=== PATIENT | female | born 1950 | race African-American/Black ===

== ENCOUNTER 2018-10-22 11:00 | Emergency (ER) | payer MEDICARE, OTHER ==
[~2018-10-22] VITALS: Ht 162.6 cm; Wt 70.3 kg
[~2018-10-22 11:00] MED LIST: ASPI-630 PO; ATEN-56 PO; LISI-334 PO; OMEGA PO; SPIR25TA PO; multivitamin PO
[2018-10-22 11:18] VITALS: BP 153/130
--- NOTE | 2018-10-22 11:46 | PHYS DOC ---
Past History Past Medical History: High Cholesterol, Hypertension Past Surgical History: Hysterectomy, Other Smoking: Quit Greater Than 1 Year Alcohol Use: Occasionally Drug Use: None Adult General Chief Complaint Chief Complaint: NOSEBLEED HPI HPI 68-year-old female presents with nosebleed. The patient was taking a shower when she started having a nosebleed on the right. She has not had a significant nosebleed in about 4 years. She was trying to stay calm balls in her nose and get dressed on same time which was very difficult. Patient was unable to get the bleeding to stop at home, so she got a ride to the emergency room. The patient is on a baby aspirin daily. She is on no other antiplatelets or anticoagulants. 4 years ago, the patient had to have her nose cauterized. The patient has chronic sinus drainage. She also has hypertension. She did not take her blood pressure medicine this morning. On arrival to the ED, the patient's bleeding seemed to be more control. Review of Systems Review of Systems Constitutional: Denies fever or chills [] Eyes: Denies change in visual acuity, redness, or eye pain [] HENT: Nosebleed. Denies nasal congestion or sore throat [] Respiratory: Denies cough or shortness of breath [] Cardiovascular: No additional information not addressed in HPI [] GI: Denies abdominal pain, nausea, vomiting, bloody stools or diarrhea [] : Denies dysuria or hematuria [] Musculoskeletal: Denies back pain or joint pain [] Integument: Denies rash or skin lesions [] Neurologic: Denies headache, focal weakness or sensory changes [] Endocrine: Denies polyuria or polydipsia [] All other systems were reviewed and found to be within normal limits, except as documented in this note. Allergies Allergies Allergies Coded Allergies Type Severity Reaction Last Updated Verified Sulfa (Sulfonamide Antibiotics) Allergy Unknown 09/10/13 Yes Physical Exam Physical Exam Constitutional: Well developed, well nourished, no acute distress, non-toxic appearance. [] HENT: Normocephalic, atraumatic, bilateral external ears normal, oropharynx moist, no oral exudates, nose with clot in the right nares. No active bleeding.[] Eyes: PERRLA, EOMI, conjunctiva normal, no discharge. [] Neck: Normal range of motion, no tenderness, supple, no stridor. [] Cardiovascular:Heart rate regular rhythm, no murmur [] Lungs & Thorax: Bilateral breath sounds clear to auscultation [] Abdomen: Bowel sounds normal, soft, no tenderness, no masses, no pulsatile masses. [] Skin: Warm, dry, no erythema, no rash. [] Back: No tenderness, no CVA tenderness. [] Extremities: No tenderness, no cyanosis, no clubbing, ROM intact, no edema. [] Neurologic: Alert and oriented X 3, normal motor function, normal sensory function, no focal deficits noted. [] Psychologic: Affect normal, judgement normal, mood normal. [] Current Patient Data Vital Signs Vital Signs Date Time Temp Pulse Resp B/P (MAP) Pulse Ox O2 Delivery O2 Flow Rate FiO2 10/22/18 11:18 113 20 100 Room Air EKG EKG [] Radiology/Procedures Radiology/Procedures [] Course & Med Decision Making Course & Med Decision Making Pertinent Labs and Imaging studies reviewed. (See chart for details) After the patient was in the room, we had her blow her nose to clear the clots. There was minimal bleeding at that time. We placed a nasal clamp on her nose. This was left in place for 10 minutes. The patient's bleeding is now controlled. An exam of her nose shows that she had some bleeding from the anterior septum on both sides. The areas are well clotted at this time. She is stable for discharge. [] Dragon Disclaimer Dragon Disclaimer This electronic medical record was generated, in whole or in part, using a voice recognition dictation system. Departure Departure: Impression: Primary Impression: Nosebleed Disposition: 01 HOME, SELF-CARE Condition: IMPROVED Referrals: SAMEER HANDY DO (PCP) Patient Instructions: Demetra, [id number] PATRIA OSUNA DO Oct 22, 2018 11:46
== END 2018-10-22 12:54 | disposition home or self-care (01) ==
LOC: ER 11:00
DX: R04.0 Epistaxis (principal); E78.00 Pure hypercholesterolemia, unspecified; I10 Essential (primary) hypertension; Z87.891 Personal history of nicotine dependence; Z88.2 Allergy status to sulfonamides
CPT/HCPCS: 99281

== ENCOUNTER 2018-10-24 22:36 | Emergency (ER) | payer MEDICARE, OTHER ==
[~2018-10-24] VITALS: Ht 162.6 cm; Wt 70.3 kg
[2018-10-24] MEDS ORDERED: OXYMETAZOLINE 0.05% NASAL SPRAY 15ML BOTTLE. NS ONE (22:45)
[2018-10-24] MEDS ORDERED: OXYM15MI4 NS (23:15)
--- NOTE | 2018-10-24 23:15 | PHYS DOC ---
Past History Past Medical History: High Cholesterol, Hypertension, Other Past Surgical History: Hysterectomy, Other Additional Past Surgical Histo: shoulder surgery month back surgery Smoking: Quit Greater Than 1 Year Alcohol Use: Occasionally Drug Use: None Adult General Chief Complaint Chief Complaint: NOSEBLEED HPI HPI Patient is a 68-year-old female presents complaining of a right-sided nosebleed. This started approximately 30 minutes prior to arrival. Patient had another nosebleed that she was seen for on Tuesday. She was not given any medicine to help with the bleed. The bleeding had resolved on Tuesday prior to arrival. Patient was worried tonight and so came back to the emergency department. Bleeding was mild to moderate. There is no lightheadedness. No trauma. She relates that she had a sewer and inspector issue at her house, which backed up. This caused the need for significant home construction starting 3 days ago. She is wondering if possibly the dirt and dust in the air may be partially responsible for these nosebleeds[] Review of Systems Review of Systems Constitutional: Denies fever or chills [] Eyes: Denies change in visual acuity, redness, or eye pain [] HENT: Denies nasal congestion or sore throat, see history of present illness [] Respiratory: Denies cough or shortness of breath [] Cardiovascular: No chest pain or palpitations[] GI: Denies abdominal pain, nausea, vomiting, bloody stools or diarrhea [] : Denies dysuria or hematuria [] Musculoskeletal: Denies back pain or joint pain [] Integument: Denies rash or skin lesions [] Neurologic: Denies headache, focal weakness or sensory changes [] Endocrine: Denies polyuria or polydipsia [] All other systems were reviewed and found to be within normal limits, except as documented in this note. Current Medications Current Medications Current Medications Medications (Trade) Dose Ordered Sig/John Start Time Stop Time Status Last Admin Dose Admin Oxymetazoline HCl (Afrin) 2 spray 1X ONCE 10/24/18 22:45 10/24/18 22:47 DC 10/24/18 22:48 2 SPRAY Allergies Allergies Allergies Coded Allergies Type Severity Reaction Last Updated Verified Sulfa (Sulfonamide Antibiotics) Allergy Unknown 09/10/13 Yes Physical Exam Physical Exam Constitutional: Well developed, well nourished, no acute distress, non-toxic appearance. [] HENT: Normocephalic, atraumatic, bilateral external ears normal, oropharynx moist, no oral exudates, nose prominent vessels bilateral inferior turbinates. Blood is present in bilateral nares. No active bleeding is noted after Afrin administration.. [] Eyes: PERRLA, EOMI, conjunctiva normal, no discharge. [] Neck: Normal range of motion, no tenderness, supple, no stridor. [] Cardiovascular:Heart rate regular rhythm, no murmur [] Lungs & Thorax: Bilateral breath sounds clear to auscultation [] Abdomen: Not examined. [] Skin: Warm, dry, no erythema, no rash. [] Back: No tenderness, no CVA tenderness. [] Extremities: No tenderness, no cyanosis, no clubbing, ROM intact, no edema. [] Neurologic: Alert and oriented X 3, normal motor function, normal sensory function, no focal deficits noted. [] Psychologic: Affect normal, judgement normal, mood normal. [] Current Patient Data Vital Signs Vital Signs Date Time Temp Pulse Resp B/P (MAP) Pulse Ox O2 Delivery O2 Flow Rate FiO2 10/24/18 22:57 76 18 166/108 (127) 98 Room Air EKG EKG [] Radiology/Procedures Radiology/Procedures [] Course & Med Decision Making Course & Med Decision Making Pertinent Labs and Imaging studies reviewed. (See chart for details) ED course: Patient arrived, was placed in bed, and tolerated exam well. Nasal clamp was applied, then Afrin was instilled. There was no significant clot or rhinorrhea able to be excreted. Patient was examined after the Afrin administration. Findings were discussed with patient and her brother. All questions were answered. She was discharged in improved condition. Medical decision making: There is no evidence of intractable bleeding. No evidence of a bleeding diathesis. No evidence of DIC. No evidence of a significant anemia.[] Dragon Disclaimer Dragon Disclaimer This electronic medical record was generated, in whole or in part, using a voice recognition dictation system. Departure Departure: Impression: Primary Impression: Epistaxis Disposition: HOME, SELF-CARE Condition: IMPROVED Referrals: SAMEER HANDY DO (PCP) Follow-up in 2 days Patient Instructions: Nosebleed Additional Instructions: Follow-up with your regular doctor in 2 days. When in the shower, coupled water in your hands and "snort" some of this through your nose to flush the area clean. Return to the ER if continued bleeding or any other concerns. Scripts Oxymetazoline Hcl (AFRIN) 15 Ml Mist 15 ML NS as directed for nosebleed, #1 SPRAY Use only during a nosebleed 1. Blow all the snot and clot out 2. Use 2 squirts in each nostril 3. Hold pressure for 10 minutes 4. If continued bleeding after 10 minutes, repeat steps 1, 2, and 3 above 5. If continued bleeding after 2 attempts, return to the emergency department Prov: JOE HURT DO 10/24/18 JOE HURT DO Oct 24, 2018 23:15
[2018-10-24 23:19] VITALS: BP 142/105
== END 2018-10-24 23:23 | disposition home or self-care (01) ==
LOC: ER 22:36
DX: R04.0 Epistaxis (principal); E78.00 Pure hypercholesterolemia, unspecified; I10 Essential (primary) hypertension; Z87.891 Personal history of nicotine dependence; Z88.2 Allergy status to sulfonamides
CPT/HCPCS: 99282; 99283

== ENCOUNTER 2021-05-30 11:18 | Emergency (ER) | payer MEDICARE, OTHER ==
[~2021-05-30] VITALS: Ht 162.6 cm; Wt 77.1 kg
[2021-05-30 11:18] VITALS: BP 130/89
[~2021-05-30 11:18] MED LIST changes: -LISI-334 PO; +LISI20TA18 PO; +OXYM15MI4 NS
--- NOTE | 2021-05-30 11:47 | PHYS DOC ---
Past History Past Medical History: High Cholesterol, Hypertension, Other Past Surgical History: Hysterectomy, Other Additional Past Surgical Histo: shoulder surgery month back surgery Smoking: Quit Greater Than 1 Year Alcohol Use: Occasionally Drug Use: None General Adult EDM: Chief Complaint: LACERATION/AVULSION HPI: HPI: 70-year-old female presents with skin tear of the right third and fourth toe. The patient was walking in her house last night when she tripped over something in the kitchen. She thinks it may have been a piece of furniture. She had pain in her foot and noticed that she was bleeding. Her neighbor came over and they wrapped up her toes and got the bleeding to stop. Patient did not have significant pain so she went to bed and thought things to be fine. When she woke up this morning, she noticed that she had quite a bit of swelling so she decided come in for evaluation. She is concerned about foot or toe fracture. It is only painful when she walks but she is able to walk. Tetanus is up-to-date. Review of Systems: Review of Systems: Constitutional: Denies fever or chills Eyes: Denies change in visual acuity HENT: Denies nasal congestion or sore throat Respiratory: Denies cough or shortness of breath Cardiovascular: Denies chest pain or edema GI: Denies abdominal pain, nausea, vomiting, bloody stools or diarrhea : Denies dysuria Musculoskeletal: Denies back pain or joint pain Integument: Denies rash Neurologic: Denies headache, focal weakness or sensory changes Endocrine: Denies polyuria or polydipsia Lymphatic: Denies swollen glands Psychiatric: Denies depression or anxiety Allergies: Allergies: Allergies Coded Allergies Type Severity Reaction Last Updated Verified Sulfa (Sulfonamide Antibiotics) Allergy Unknown 09/10/13 Yes Physical Exam: PE: Constitutional: Well developed, well nourished, no acute distress, non-toxic appearance. [] HENT: Normocephalic, atraumatic, bilateral external ears normal, oropharynx moist, no oral exudates, nose normal. [] Eyes: PERRLA, EOMI, conjunctiva normal, no discharge. [] Neck: Normal range of motion, no tenderness, supple, no stridor. [] Cardiovascular: Heart rate regular rhythm, no murmur [] Lungs & Thorax: Bilateral breath sounds clear to auscultation [] Abdomen: Bowel sounds normal, soft, no tenderness, no masses, no pulsatile masses. [] Skin: 1 cm each skin tears of the plantar third and fourth digit of the right foot, no active bleeding. [] Back: No tenderness, no CVA tenderness. [] Extremities: No tenderness, no cyanosis, no clubbing, ROM intact, no edema. [] Neurologic: Alert and oriented X 3, normal motor function, normal sensory function, no focal deficits noted. [] Psychologic: Affect normal, judgement normal, mood normal. [] Current Patient Data: Vital Signs: Vital Signs Date Time Temp Pulse Resp B/P (MAP) Pulse Ox O2 Delivery O2 Flow Rate FiO2 05/30/21 11:18 75 16 130/89 (103) 100 Room Air EKG: EKG: [] Radiology/Procedures: Radiology/Procedures: [] Impressions: Three-view right foot dated 05/30/2021. No comparison available. CLINICAL INDICATION: Pain. FINDINGS: 3 views right foot show normal bony alignment. Evaluation is somewhat limited due to nonstandard positioning. There is some radiolucency near the base of the fourth proximal phalanx seen on only one view. There is also slight irregularity of the third proximal phalanx. Osseous structures otherwise intact. No displaced fracture. Mild degenerative change of the first MTP joint and mild degenerative change of the interphalangeal joints throughout. Prominent en thesophytes at the calcaneus. IMPRESSION: 1. Possible nondisplaced fractures at the base of fourth and third proximal phalanx versus artifact. If pain persists, follow-up imaging may be warranted. Electronically signed by: Marshall Escalante MD (05/30/2021 12:01 PM) [id number] DICTATED AND SIGNED BY: MARSHALL ESCALANTE MD DATE: 05/30/21 1159 CC: PATRIA OSUNA DO; SAMEER HANDY DO ~MTH0 0 Heart Score: C/O Chest Pain: N/A Risk Factors: Risk Factors: DM, Current or recent (<one month) smoker, HTN, HLP, family history of CAD, obesity. Risk Scores: Score 0 - 3: 2.5% MACE over next 6 weeks - Discharge Home Score 4 - 6: 20.3% MACE over next 6 weeks - Admit for Clinical Observation Score 7 - 10: 72.7% MACE over next 6 weeks - Early Invasive Strategies Course & Med Decision Making: Course & Med Decision Making Pertinent Labs and Imaging studies reviewed. (See chart for details) The patient's x-ray shows possible nondisplaced fractures of the toes. Her lacerations are greater than 12 hours old. Repair is no longer indicated. There would also be difficult to suture and unlikely to have any better. I will place the patient on clindamycin and levofloxacin for infection prophylaxis. We will place the patient in an orthopedic shoe and I have advised that she continue to wear this as long as she has pain. She will follow-up with her doctor as needed. She is stable for discharge at this time. [] Litaon Disclaimer: Dragguerrero Disclaimer: This electronic medical record was generated, in whole or in part, using a voice recognition dictation system. Departure Departure: Impression: Primary Impression: Laceration of toe, right Disposition: HOME / SELF CARE / HOMELESS Condition: STABLE Referrals: SAMEER HANDY DO (PCP) Patient Instructions: Laceration, Old, Not Sutured PATRIA OSUNA DO May 30, 2021 11:47
--- NOTE | 2021-05-30 12:04 | RAD ---
Three-view right foot dated 05/30/2021. No comparison available. CLINICAL INDICATION: Pain. FINDINGS: 3 views right foot show normal bony alignment. Evaluation is somewhat limited due to nonstandard posi tioning. There is some radiolucency near the base of the fourth proximal phalanx seen on only one vie w. There is also slight irregularity of the third proximal phalanx. Osseous structures otherwise inta ct. No displaced fracture. Mild degenerative change of the first MTP joint and mild degenerative rodriguez ge of the interphalangeal joints throughout. Prominent enthesophytes at the calcaneus. IMPRESSION: 1. Possible nondisplaced fractures at the base of fourth and third proximal phalanx versus artifact. If pain persists, follow-up imaging may be warranted. Electronically signed by: Marshall Escalante MD (05/30/2021 12:01 PM) [id number]
[2021-05-30] MEDS ORDERED: CLIN-95 PO (12:35)
[2021-05-30] MEDS ORDERED: LEVO750T5 PO (12:35)
== END 2021-05-30 12:40 | disposition home or self-care (01) ==
LOC: ER 11:18
DX: S91.114A Laceration without foreign body of right lesser toe(s) without damage to nail, initial encounter (principal); E78.00 Pure hypercholesterolemia, unspecified; I10 Essential (primary) hypertension; Z87.891 Personal history of nicotine dependence; Z88.2 Allergy status to sulfonamides; W22.8XXA Striking against or struck by other objects, initial encounter; Y93.01 Activity, walking, marching and hiking; Y92.89 Other specified places as the place of occurrence of the external cause; Y99.8 Other external cause status
CPT/HCPCS: 73630; 99283

== ENCOUNTER 2021-07-08 13:27 | Emergency (ER) | payer MEDICARE, OTHER ==
[~2021-07-08] VITALS: Ht 162.6 cm; Wt 77.1 kg
[~2021-07-08 13:27] MED LIST changes: +CLIN-95 PO; +LEVO750T5 PO
--- NOTE | 2021-07-08 13:36 | PHYS DOC ---
Past History Past Medical History: High Cholesterol, Hypertension, Other Past Surgical History: Hip Replacement, Hysterectomy, Other Additional Past Surgical Histo: shoulder surgery month back surgery Smoking: Quit Greater Than 1 Year Alcohol Use: Occasionally Drug Use: None Adult General Chief Complaint Chief Complaint: HEARTBURN/GI DISTRESS [facility] HPI Patient is a 70 year old female who presents with heartburn. Patient states she has been having symptoms over the last 2 weeks. Her symptoms only occur after she eats or drinks anything. She has noted that she has a burning sensation in the esophageal area that occurs every time she eats. She states the type of fo od does not matter, the symptoms recur. She has no vomiting. No hematemesis. No lower abdominal pain. She has not had symptoms similar to this in the past. She denies chest pain or shortness of breath. No palpitations, lightheadedness. Has not attempted any [id number] medications for control of symptoms. On arrival to the ER, she is not currently having the symptoms. She denies any pain. She decided today to get evaluated based on symptoms she had been having. They were not severely worse over the last day. Review of Systems Review of Systems Constitutional: Denies fever or chills Eyes: Denies change in visual acuity HENT: Denies nasal congestion Respiratory: Denies cough or shortness of breath Cardiovascular: No additional information not addressed in HPI GI: As documented in HPI Musculoskeletal: Denies back pain or joint pain Integument: Denies rash or skin lesions Neurologic: Denies headache All other systems were reviewed and found to be within normal limits, except as documented in this note. Allergies Allergies Allergies Coded Allergies Type Severity Reaction Last Updated Verified Sulfa (Sulfonamide Antibiotics) Allergy Unknown 09/10/13 Yes Physical Exam Physical Exam Constitutional: Well developed, well nourished, no acute distress, non-toxic appearance HENT: Normocephalic, atraumatic, bilateral external ears normal, oropharynx moist Eyes: PERRLA, EOMI, conjunctiva normal Neck: Normal range of motion Cardiovascular:Heart rate regular rhythm, no murmur Lungs & Thorax: Bilateral breath sounds clear to auscultation Abdomen: Bowel sounds normal, soft, no tenderness Skin: Warm, dry, no erythema, no rash Back: Normal ROM Extremities: Normal ROM, no edema Neurologic: Alert and oriented X 3 Psychologic: Affect normal EKG EKG 14:10: Normal sinus rhythm. No ST changes to suggest ischemia. Rate is 65. Interpreted by ER physician. Radiology/Procedures Radiology/Procedures [] Heart Score C/O Chest Pain: No Risk Factors: Risk Factors: DM, Current or recent (<one month) smoker, HTN, HLP, family history of CAD, obesity. Risk Scores: Risk Factors: DM, Current or recent (<one month) smoker, HTN, HLP, family history of CAD, obesity. Course & Med Decision Making Course & Med Decision Making Pertinent Labs and Imaging studies reviewed. (See chart for details) Seen and examined on arrival to her room. She describes symptoms that only occur with eating food or any fluids including water. She describes a burning sensation in the esophagus. Symptoms are not worse at night. No prior eval. She has been having symptoms for over 2 weeks. On arrival to ER she is asymptomatic. Today, we will check troponin and basic labs. We will do chest x-ray to evaluate for any more acute etiology for complaint. 15:25: All results are reviewed and discussed with the patient. All of her questions were answered. Today, her troponin is not elevated. EKG is normal. She is stable for discharge from the ER and I recommend she follow-up with her primary care doctor. She is also given the information to follow-up with GI at [facility]. In the meantime, she is placed on PPI therapy and I recommended she also use additional [id number]-[id number] antacid medications with each meal as well as other GERD precautions. She is agreeable to the plan of care. Dragon Disclaimer Dragon Disclaimer This electronic medical record was generated, in whole or in part, using a voice recognition dictation system. Departure Departure: Impression: Primary Impression: GERD (gastroesophageal reflux disease) Disposition: HOME / SELF CARE / HOMELESS Condition: GOOD Referrals: SAMEER HANDY DO (PCP) LANETTE BALTAZAR MD Scripts Pantoprazole Sodium (PROTONIX) 40 Mg Tablet. 1 TAB PO DAILY for 30 Days, #30 TAB 1 Refill Prov: MARIBEL LOYA DO 07/08/21 MARIBEL LOYA DO Jul 08, 2021 13:36
--- NOTE | 2021-07-08 14:17 | RAD ---
EXAM: Chest, single view. HISTORY: Chest pain. COMPARISON: None. FINDINGS: A frontal view of the chest is obtained. There is no infiltrate, pleural effusion or pneumo thorax. The heart is normal in size. IMPRESSION: No acute pulmonary finding. Electronically signed by: Zandra Peng MD (07/08/2021 2:14 PM) [id number]
[2021-07-08 14:19] LABS: BASO # 0.2 x10^3/uL (0.0-0.2); BASO % 3 % (0-3); EOS # 0.1 x10^3/uL (0.0-0.7); EOS % 3 % (0-3); HEMATOCRIT 41.3 % (36.0-47.0); HEMOGLOBIN 13.8 g/dL (12.0-15.5); LYMPH # 1.8 x10^3/uL (1.0-4.8); LYMPH % 36 % (24-48); MEAN CORPUSCULAR HEMOGLOBIN 29 pg (25-35); MEAN CORPUSCULAR HGB CONC 33 g/dL (31-37); MEAN CORPUSCULAR VOLUME 87 fL (79-100); MONO # 0.2 x10^3/uL (0.0-1.1); MONO % 5 % (0-9); NEUT # 2.7 x10^3uL (1.8-7.7); NEUT % 54 % (31-73); PLATELET COUNT 180 x10^3/uL (140-400); RED BLOOD COUNT 4.72 x10^6/uL (3.50-5.40); RED CELL DISTRIBUTION WIDTH 15.4 % (11.5-14.5); WHITE BLOOD COUNT 5.1 x10^3/uL (4.0-11.0)
[2021-07-08 15:08] LABS: CALCIUM 9.1 mg/dL (8.5-10.1); CREATININE 0.7 mg/dL (0.6-1.0); GFR 100.1; POTASSIUM 3.9 mmol/L (3.5-5.1)
[2021-07-08 15:15] VITALS: BP 127/88
[2021-07-08] MEDS ORDERED: PANT40TA3 PO (15:26)
--- NOTE | 2021-07-08 21:14 | EKG ---
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
== END 2021-07-08 15:40 | disposition home or self-care (01) ==
LOC: ER 13:27
DX: K21.9 Gastro-esophageal reflux disease without esophagitis (principal); E78.00 Pure hypercholesterolemia, unspecified; I10 Essential (primary) hypertension; Z87.891 Personal history of nicotine dependence; Z88.2 Allergy status to sulfonamides
CPT/HCPCS: 36415; 71045; 80048; 84484; 85025; 93005; 99285

== ENCOUNTER → 2021-07-16 | Outpatient (CLI) | payer MEDICARE, OTHER ==
[2021-07-08 15:15] VITALS: BP 127/88
[~2021-07-16] MED LIST changes: +PANT40TA3 PO
--- NOTE | 2021-07-16 13:37 | RAD ---
XR HAND_LEFT 3 VIEWS DATE: 07/16/2021 12:00 PM INDICATION: FALL, PAIN WORSE IN THUMB COMPARISON: None. FINDINGS: Bones: There is no evidence of acute fracture or dislocation. Joints: Mild degenerative changes of the IP joints. Miscellaneous: None. IMPRESSION: No evidence of acute fracture. Electronically signed by: Sherif Last MD (07/16/2021 1:34 PM) [id number]
== END ==
LOC: PMG 11:51
PROVIDERS: ATTEND Nurse Practitioner Family
DX: S69.92XA Unspecified injury of left wrist, hand and finger(s), initial encounter (principal); M19.042 Primary osteoarthritis, left hand; W19.XXXA Unspecified fall, initial encounter; Y93.89 Activity, other specified; Y92.89 Other specified places as the place of occurrence of the external cause; Y99.8 Other external cause status
CPT/HCPCS: 73130